=== PATIENT | male | born 1970 | race Two or more races ===

== ENCOUNTER 2019-11-18 08:52 | Emergency (ER) | payer BC, OTHER ==
[~2019-11-18] VITALS: Ht 182.9 cm; Wt 103.4 kg
[2019-11-18 10:45] VITALS: BP 128/84
== END 2019-11-18 10:52 | disposition home or self-care (01) ==
LOC: ER 08:52
DX: J06.9 Acute upper respiratory infection, unspecified (principal)
CPT/HCPCS: 71046